=== PATIENT | male | born 1950 | race Caucasian/White ===

== ENCOUNTER → 2019-05-22 | Outpatient (CLI) | payer BC, OTHER ==
--- NOTE | 2019-05-22 15:09 | Diagnostic Imaging Report ---
EXAMINATION: CT Chest without contrast (lung screening). TECHNIQUE: Multiple contiguous axial images were obtained through the chest without the use of intravenous contrast according to lung cancer screening protocol. All CT scans use one or more of the following dose optimizing techniques: automated exposure control, MA and/or KvP adjustment based on a patient size and exam type, or iterative reconstruction. HISTORY: 108 pack year history of smoking. COMPARISON: None available. FINDINGS: There is no edema or pneumonia. No pleural effusion. No pneumothorax. No suspicious nodules. Heart size is normal. There are mild coronary artery calcifications. No pericardial effusion. Aorta is normal in caliber. There is no axillary or supraclavicular lymphadenopathy. There is no mediastinal lymphadenopathy. Limited views of the upper abdomen are unremarkable. There are no suspicious osseus lesions. IMPRESSION: 1. No suspicious pulmonary nodules. LUNG-RADS CATEGORY: 1 MODIFIER: None. Dictated by: Dictated on workstation # [id number]
== END ==
LOC: RAD 14:02
PROVIDERS: ATTEND Family Medicine
DX: J44.9 Chronic obstructive pulmonary disease, unspecified (principal); Z72.0 Tobacco use

== ENCOUNTER → 2021-02-07 | Outpatient (CLI) | payer MEDICARE, OTHER ==
--- NOTE | 2021-02-07 15:27 | Diagnostic Imaging Report ---
CT Lung Screening INDICATION: 21-nijw-hxtv smoking history, for annual low-dose CT screening. TECHNIQUE: Noncontrast, low-dose CT imaging performed according to the lung cancer screening protocol. Auto Exposure Controls were utilize during the CT exam to meet ALARA standards for radiation dose reduction. COMPARISON: 05/22/2019. FINDINGS: No lung mass or suspicious pulmonary nodule. Symmetrical air trapping and hyperinflation of the lungs is chronic. No blebs, bullous disease, or air cysts. No bronchiectasis. No thoracic adenopathy. The atherosclerotic aorta is nonaneurysmal. There are some coronary artery atherosclerotic vascular calcifications, chronic. No evidence for adenopathy. Upper abdomen shows a fatty liver and partially visualized right renal cysts. Low-density fatty thickening and likely hyperplasia of the left adrenal gland, unchanged. IMPRESSION: No evidence for lung cancer. Continued low-dose CT screening follow-up in one year's time recommended. LUNG-RADS CATEGORY: 1. MODIFIER: None. OTHER SIGNIFICANT FINDINGS: Atherosclerosis, air trapping, fatty liver, and likely fatty adenomatous hyperplasia of the left adrenal gland are all stable and chronic. Dictated by: Dictated on workstation # [id number]
== END ==
LOC: RAD 11:53
PROVIDERS: ATTEND Family Medicine
DX: Z12.2 Encounter for screening for malignant neoplasm of respiratory organs (principal); F17.210 Nicotine dependence, cigarettes, uncomplicated
CPT/HCPCS: 71271

== ENCOUNTER 2021-07-01 15:23 | Outpatient (RCR) | payer MEDICARE, OTHER ==
[2021-07-01 16:38] LABS: BILIRUBIN,URINE NEGATIVE (NEGATIVE); CLARITY,URINE CLEAR; COLOR,URINE YELLOW; GLUCOSE, URINE (UA) NEGATIVE (NEGATIVE); KETONES,URINE NEGATIVE (NEGATIVE); LEUKOCYTE ESTERASE ,URINE NEGATIVE (NEGATIVE); NITRITE,URINE NEGATIVE (NEGATIVE); PROTEIN,URINE TRACE (NEGATIVE)
[2021-07-01 16:44] LABS: BACTERIA,URINE NEGATIVE /HPF; SQUAMOUS EPITHELIAL CELL,UR 0-2 /HPF
== END 2021-07-05 | disposition home or self-care (01) ==
LOC: ONC 15:23
PROVIDERS: ATTEND Internal Medicine Hematology & Oncology
DX: D75.1 Secondary polycythemia (principal)
CPT/HCPCS: 81000; 82375; 82668; G0463; 36415; 99214

== ENCOUNTER 2021-09-30 09:14 | Outpatient (RCR) | payer MEDICARE, OTHER | END 2021-10-05 | disposition home or self-care (01) | LOC: ONC 09:14 | PROVIDERS: ATTEND Internal Medicine Hematology & Oncology | DX: D75.1 Secondary polycythemia (principal); R82.998 Other abnormal findings in urine | CPT/HCPCS: 87088; G0463; 99213 ==

== ENCOUNTER → 2021-10-02 | Outpatient (CLI) | payer MEDICARE, OTHER ==
--- NOTE | 2021-10-02 16:44 | Diagnostic Imaging Report ---
PROCEDURE: US Renal Bilateral. TECHNIQUE: Multiple real-time grayscale images were obtained over the kidneys in various projections bilaterally. INDICATION: Hematuria. COMPARISON: None FINDINGS: Right kidney measures 12.8 cm and the left kidney measures 12.7 cm. Right kidney demonstrates mild to moderate hydronephrosis. There is no hydronephrosis on the left. No calculi are seen on either side. No suspicious solid masses are seen. Cortical thickness and cortical medullary differentiation are maintained. There is no ascites. Limited views of the pelvis show mild to moderate distention of the urinary bladder. No large intraluminal filling defects are seen. Bilateral ureteral jets are identified. IMPRESSION: 1. Mild to moderate right-sided hydronephrosis of uncertain etiology. Dictated by: Dictated on workstation # [id number]
== END ==
LOC: RAD 12:43
PROVIDERS: ATTEND Internal Medicine Hematology & Oncology
DX: N13.30 Unspecified hydronephrosis (principal); R31.9 Hematuria, unspecified
CPT/HCPCS: 76770